=== PATIENT | male | born 1995 | race Caucasian/White ===

== ENCOUNTER 2019-03-09 13:06 | Emergency (ER) | payer SELFPAY ==
[2019-03-09 13:41] VITALS: BP 142/88
--- NOTE | 2019-03-09 14:21 | CR ---
Clinical history: 23-year-old male smoker with asthma, wheezing and a cough for the past 2 weeks. Interpretation: Pleural parenchymal scarring right base, presumed sequelae of previous hemothorax or empyema (May 2016). Normal cardiac silhouette and bony thorax. Ascites aortic arch. No alveolar edema or dependent pleural effusion No new lung mass or hilar lymphadenopathy. No focal lobar pneumonia or atelectasis/collapse. No air trapping. No pneumothorax or free subdiaphragmatic air. CONCLUSION: Evidence of old abnormality right hemithorax. No acute cardiopulmonary abnormality.
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
--- NOTE | 2019-03-09 14:23 | CR ---
Clinical history: 23-year-old male injured right ankle/foot last night. (Severe ankle sprain) Interpretation: (3 views right foot) PACS cavus and hammertoe deformities. Soft tissue swelling over the lateral malleolus right ankle. Atavistic first cuneiform. No sign of right foot fracture or dislocation. No foreign bodies.
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
== END 2019-03-09 15:56 | disposition home or self-care (01) ==
LOC: DL.ED 13:06
DX: S93.401A Sprain of unspecified ligament of right ankle, initial encounter (principal); F17.210 Nicotine dependence, cigarettes, uncomplicated; X50.1XXA Overexertion from prolonged static or awkward postures, initial encounter
CPT/HCPCS: 71046; 73610-RT; 73630-RT; 99283-25

== ENCOUNTER 2020-03-31 12:18 | Emergency (ER) | payer MEDICAID, OTHER ==
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
[2020-03-31] MEDS ORDERED: MVI, Adult with Vitamin K 10 ML, Folic Acid 1 MG, Thiamine 100 MG in Lactated Ringers 1... IV ONE ×4 (12:50)
[2020-03-31 13:07] LABS: CHLORIDE,CL 99 mmol/L (98-107); SODIUM,NA 139 mmol/L (136-145)
[2020-03-31] MEDS ORDERED: Potassium Chloride 10 MEQ Tab.ER PO ONE (13:58)
[2020-03-31] MEDS ORDERED: Ondansetron 4 MG/2 ML SDV IVPUSH PRN (13:59)
[2020-03-31] MEDS ORDERED: 50% Dextrose in Water 50 ML Syringe IVPUSH PRN (14:01)
[2020-03-31 14:53] VITALS: BP 115/64; PULSE 57
== END 2020-03-31 16:08 | disposition home or self-care (01) ==
LOC: DL.ED 12:18
DX: F10.10 Alcohol abuse, uncomplicated (principal); Y90.3 Blood alcohol level of 60-79 mg/100 ml; Z90.89 Acquired absence of other organs
CPT/HCPCS: 36415; 80053; 80305; 80307; 82962; 83605; 83735; 85025; 85379; 87040; 96365; 96375; 99284; A9270; J2405; J3411; J7120; J3490